=== PATIENT | male | born 1995 | race Caucasian/White ===

== ENCOUNTER 2019-02-17 10:53 | Emergency (ER) | payer BC ==
[2019-02-17 12:35] VITALS: BP 119/68
--- NOTE | 2019-02-17 13:12 | UC ---
Throat Pain/Nasal Lenin HPI - HPI Summary HPI Summary: patient started feeling sick yesterday with mild sore throat and fatigue. today awoke with congestion in chest, ST persists, feels sick - History of Current Complaint Chief Complaint: UCRespiratory Stated Complaint: CONGESTION, SORE THROAT Time Seen by Provider: 02/17/19 12:42 Hx Obtained From: Patient Onset/Duration: Gradual Onset Severity: Mild Pain Intensity: 4 Cough: Nonproductive - mild Associated Signs & Symptoms: Positive: Vomiting - x one episode after coughing. Negative: Sinus Discomfort, Fever - Allergies/Home Medications Allergies/Adverse Reactions: Allergies Allergy/AdvReac Type Severity Reaction Status Date / Time amoxicillin Allergy Vomiting Verified 02/17/19 12:35 PMH/Surg Hx/FS Hx/Imm Hx Previously Healthy: Yes - Surgical History Surgical History: None - Family History Known Family History: Positive: Non-Contributory - Social History Occupation: Employed Full-time Lives: With Family Alcohol Use: Occasionally Substance Use Type: None Smoking Status (MU): Never Smoked Tobacco Review of Systems All Other Systems Reviewed And Are Negative: Yes Constitutional: Positive: Fatigue Skin: Positive: Negative. Negative: Rash Eyes: Positive: Negative ENT: Positive: Sore Throat. Negative: Ear Ache, Nasal Discharge, Sinus Congestion Respiratory: Positive: Cough Cardiovascular: Positive: Negative Gastrointestinal: Negative: Abdominal Pain Musculoskeletal: Positive: Negative Neurological: Positive: Negative. Negative: Headache Psychological: Positive: Negative Is Patient Immunocompromised?: No Physical Exam Triage Information Reviewed: Yes Appearance: Well-Appearing, No Pain Distress, Well-Nourished Vital Signs: Initial Vital Signs Temp 98.4 F 02/17/19 12:32 Pulse 97 02/17/19 12:32 Resp 12 02/17/19 12:32 BP 119/68 02/17/19 12:32 Pulse Ox 100 02/17/19 12:32 Vital Signs Reviewed: Yes Eye Exam: Normal Eyes: Positive: Conjunctiva Clear ENT: Positive: Pharyngeal erythema, TMs normal. Negative: Nasal congestion Neck exam: Normal Neck: Positive: Supple, Nontender, No Lymphadenopathy Respiratory Exam: Normal Respiratory: Positive: Lungs clear, Other: - no cough on exam Cardiovascular Exam: Normal Cardiovascular: Positive: RRR Abdominal Exam: Normal Abdomen Description: Positive: Nontender, No Organomegaly, Soft Bowel Sounds: Positive: Present Neurological Exam: Normal Psychological Exam: Normal Skin Exam: Normal Skin: Negative: Rashes Throat Pain/Nasal Course/Dx - Differential Dx/Diagnosis Differential Diagnosis/HQI/PQRI: Pharyngitis, Sinusitis, Tonsillitis, URI Provider Diagnosis: Upper respiratory infection Discharge ED - Sign-Out/Discharge Documenting (check all that apply): Patient Departure All imaging exams completed and their final reports reviewed: No Studies - Discharge Plan Condition: Good Disposition: HOME Prescriptions: Azithromycin TAB* [Zithromax TAB (Z-GERDA) 250 mg #6 tabs] 2 tab PO .TODAY, THEN 1 DAILY #1 gerda Patient Education Materials: Upper Respiratory Infection (DC) Forms: *Work Release Referrals: Corbin May MD [Primary Care Provider] - 3 Days (if no better) Additional Instructions: drink plenty of fluids and rest start zithromax if no better 48hours use over the counter DayQuil/NyQuil for symptom relief as directed - Billing Disposition and Condition Condition: GOOD Disposition: Home - Attestation Statements Provider Attestation: I was available for consult. This patient was seen by the ALYSON. The patient was not presented to, seen by, or examined by me. -Rossy
== END 2019-02-17 13:22 | disposition home or self-care (01) ==
LOC: UCEAST 10:53
DX: J06.9 Acute upper respiratory infection, unspecified (principal); Z88.0 Allergy status to penicillin
CPT/HCPCS: 87651; 99202; G0463